=== PATIENT | female | born 1945 | race Caucasian/White ===

== ENCOUNTER 2017-01-26 18:42 | Inpatient (IN) | payer MEDICARE, BC ==
[~2017-01-26] VITALS: Ht 162.6 cm; Wt 82.4 kg
--- NOTE | ~2017-01-26 | CON ---
PATIENT'S NAME: SINAI CAMPOVERDE [facility] AGE: 71 Y [address] ROOM: [place] [id number] LOCATION: GPCU ADMIT DATE: 01/26/2017 Consultation DISCHARGE DATE: FAMILY PHYSICIAN: MEGGAN MURRAY) ATTENDING PHYSICIAN: TEJAL SIMMS DATE OF CONSULTATION: 01/27/2017 REFERRING PHYSICIAN: MECHE HUBBARD MD CARDIOLOGY CONSULTATION REASON FOR CARDIOLOGY CONSULTATION: Chest pain. HISTORY OF PRESENT ILLNESS: This is a 71-year-old female, who presented to an outside hospital with complaints of chest pain. The pain was located in the epigastric region and is currently reproducible with palpation. Her cardiac enzymes are negative, but her pain has been off and on since last Friday afternoon. At the time of this consult, she is pain-free and resting comfortably. When she was having the chest pain, she also had complaints of shortness of breath and dyspnea. She had one episode of nausea and vomiting prior to admission, but no longer has complaints of nausea or vomiting. She also denies presyncope or syncope or palpitations. PAST MEDICAL HISTORY: 1. Mitral valve prolapse. 2. Fibromyalgia. 3. Peptic ulcer disease. 4. Degenerative thoracic spine disk disease. 5. Peripheral neuropathy. 6. History of migraine headaches. PAST SURGICAL HISTORY: 1. Total abdominal hysterectomy. 2. Rectal prolapse and bladder lift in 2007 and a repeat bladder lift in 2011. 3. Surgery for a congenital hip dysplasia in 1968. FAMILY HISTORY: The patient's mother at the age of 90 due to colon cancer. Her father had a history of congestive heart failure and at the age of 91. SOCIAL HISTORY: The patient is a former cigarette smoker. She smoked 2 packs cigarettes per PATIENT'S NAME: SINAI CAMPOVERDE [facility] AGE: 71 Y [address] ROOM: [address] [address] LOCATION: GPCU ADMIT DATE: 01/26/2017 Consultation DISCHARGE DATE: FAMILY PHYSICIAN: MEGGAN MURRAY) ATTENDING PHYSICIAN: TEJAL SIMMS day for a total of 25 years. She quit smoking in 1986. She then started smoking cigars in 1996 for a total of 12 years and quit in 2008. She denies alcohol or illicit drug use. CURRENT MEDICATIONS: 1. Xalatan eyedrops ophthalmically daily in the evening. 2. Cozaar 50 mg p.o. daily. 3. Elavil 10 mg p.o. daily in the evening. 4. Fish oil 1000 mg p.o. daily. 5. Hydrochlorothiazide 25 mg p.o. daily. 6. Potassium chloride 50 mEq p.o. daily. 7. Metamucil 1 capsule p.o. every 48 hours. 8. Neurontin 300 mg p.o. twice daily. 9. Ogen 1.25 mg p.o. daily. 10. Os-Julien plus D 500 mg p.o. twice daily. 11. Tylenol 500 mg p.o. twice daily. 12. Vitamin B12, 1000 mcg p.o. daily. 13. Vitamin D 1000 units p.o. daily. MEDICATION ALLERGIES: 1. Beta blockers causing excessive bradycardia. 2. Sulfa causing flushing and headaches. 3. Macrobid causing hives and rash. REVIEW OF SYSTEMS: Pertinent positive review of systems listed in the HPI. All other review of systems evaluated and negative. PHYSICAL EXAMINATION: VITAL SIGNS: Temperature 97.7, pulse 61, respirations 20, blood pressure 149/72, and O2 saturation 97% on 2 L nasal cannula. The patient weighs 82.8 kg. SKIN: [place], warm, and dry. EYES: Sclerae clear. No xanthelasmas. ENT: Oral mucosa is pink and moist. No jugular venous distention. No carotid bruits. CHEST: Respirations are even and unlabored. LUNGS: Clear to auscultation. HEART: Regular rate and rhythm. Normal S1 and S2. No murmurs, rubs, or gallops. ABDOMEN: Soft with epigastric tenderness which is reproducible with palpation. Overall mild abdominal generalized tenderness. MUSCULOSKELETAL: Equal muscle strength to upper and lower extremities bilaterally against resistance. EXTREMITIES: Peripheral pulses palpable. No clubbing, cyanosis, or edema. PATIENT'S NAME: SINAI CAMPOVERDE [facility] AGE: 71 Y [address] ROOM: [place] [address] [facility] ADMIT DATE: 01/26/2017 Consultation DISCHARGE DATE: FAMILY PHYSICIAN: TREVOR, MEGGAN A. (POOL) ATTENDING PHYSICIAN: TEJAL SIMMS PSYCHIATRIC: Alert and oriented. Mood and affect are appropriate. DIAGNOSTICS: EKG shows T-wave inversions in the anterior leads, and her cardiac enzymes show troponin levels of less than 0.04 x3 values. IMPRESSION AND PLAN: Per Dr. Busch: 1. Pain in the epigastric and lower chest region. 2. Hypertension. 3. Fibromyalgia. We will check an echocardiogram to fully evaluate her ejection fraction as well as to look for wall motion or valvular abnormalities. The patient is also planned to have an ultrasound of the abdomen. If her abdominal workup is negative, we may proceed with cardiac stress testing in view of EKG changes, but we will ultimately relate that to her echo findings. We will discontinue her heparin and draw a fasting lipid panel in the a.m. and start her on aspirin 325 mg today and then 81 mg daily. We will continue to monitor, evaluate, and treat as appropriate. Thank you for this consult. Thank you for allowing [facility] to interact in the care of this patient. YENNY TUTTLE APRN FOR MD CLEMENT GARCIA/hola /[id number] d: 01/27/17 1629 t: 02/06/17 1540, CONSULTATION REPORT
--- NOTE | ~2017-01-26 | ECHO ---
Transthoracic Echocardiography Report (TTE) Demographics Patient Name SINAI CAMPOVERDE Date of Study 01/27/2017 Patient Number [id number] Visit Number [id number] Date of 1945 Room Number G6304 Gender Female Number Age 71 year(s) Referring Jo-Ann Fire Fighters Dispatcher Rusty Peck RVT Physician Travis Avila MD Physician Interpreting Jo-Ann Robles Neurosurgery Research Director Physician Supervising Ordering Physician /ANTONIO Nurse Stress Cobbler Sole Conclusions Contractility Score Summary Normal Left Ventricular contractility was noted. Summary The estimated left ventricular ejection fraction is 55-60%. Diastolic assessment reveals Grade I diastolic dysfunction. Trivial mitral regurgitation by color Doppler. Procedure Type of Study TTE procedure:2D Echocardiogram. Procedure Date Date: 01/27/2017 Start: 08:51 AM Study Location: Inpatient Portable Technical Quality: Adequate visualization Indications:Chest pain. Appropriate Use Criteria: 9 Patient Status: Routine HR: 69 bpm BP: 149/72 mmHg M-Mode/2D Measurements LV Diastolic Dimension: 4.34 cm LV Systolic Dimension: 2.09 cm LV Septum Diastolic: 1.34 cm LV PW Diastolic: 1.6 cm AO Root Dimension: 2.6 cm Cardiac Output: 4.5 l/min AV Cusp Separation: 2 cm RV Diastolic Dimension: 2.78 cm LVOT: 1.9 cm LVOT VTI: 23 cm RV Base: 2.47 cm LV Stroke volume: 65.18 ml RV Length: 6.11 cm TAPSE: 1.69 cm TDI-S': 8.88 cm/s Doppler Measurements AV Peak Velocity: 1.27 m/s MV Peak E-Wave: 0.77 m/s AV Peak Gradient: 6.45 mmHg MV Peak A-Wave: 0.98 m/s AV Mean Gradient: 4 mmHg MV E/A Ratio: 0.78 LVOT Peak Velocity: 0.98 m/s MV P1/2t: 76 msec PV Peak Velocity: 0.75 m/s E' Septal Velocity: 0.06 m/s PV Peak Gradient: 2.27 mmHg E' Lateral Velocity: 0.09 m/s A' Septal Velocity: 0.11 m/s A' Lateral Velocity: 0.12 m/s Findings Left Ventricle Diastolic assessment reveals Grade I diastolic dysfunction. Right Ventricle Normal right ventricular size and function. Left Atrium Normal left atrial size. Right Atrium IVC measures 1.82 cm with inspiratory collapse. Mitral Valve Trivial mitral regurgitation by color Doppler. Aortic Valve Normal aortic valve structure and function. Tricuspid Valve Normal tricuspid valve structure and function. Pulmonic Valve Normal pulmonic valve structure and function. Miscellaneous Visualized portions of the aortic root and ascending aorta appear normal in size. Pleural Effusion No evidence of pleural effusion. Contractility Score LV regional wall motion:(0-Non visualized 1-Normal 2-Hypokinesis 3-Akinesis 4-Dyskinesis 5-Aneurysm) Signature dtt: TRAVIS VALERIO dtd: 01/27/17 0851 Physician Self Edit
--- NOTE | ~2017-01-26 | HP ---
PATIENT'S NAME: SINAI BECKER [facility] AGE: 71 Y [address] ROOM: G6304 [place], [place] [address] LOCATION: GPCU ADMIT DATE: 01/26/2017 History & Physical DISCHARGE DATE: FAMILY PHYSICIAN: PHYSICIAN, UNKNOWN ATTENDING PHYSICIAN: TEJAL SIMMS DATE OF SERVICE: 01/26/2017 CHIEF COMPLAINT: Crushing chest pain that occurred this afternoon shortly after jainism and eating when she was relatively at rest. HISTORY OF PRESENT ILLNESS: I was called by Dr. Franco from [place], [place], regarding Ms. Becker, and initial history was from him. She had presented there complaining of "crushing" chest pain associated with shortness of breath and dyspnea. She had the same symptoms again at rest 2 days ago, which resolved without intervention. In the [facility], she was given aspirin 325 mg, morphine 4 mg, and it went from a 10/10 to a 6/10 pain. Her initial EKG showed some inversions of the T-waves in the lateral leads. Cardiac enzymes showed elevated CK-MB to 8.5, CK normal at 115, and troponin normal at 0.01. A CT of the chest with contrast was negative for dissection or PE, but positive for some emphysema. Her hemoglobin was 12.5, hematocrit 35.8. The patient was not given nitroglycerin for her persistent pain because of a prior intolerance, which resulted in severe hypotension. The patient was accepted in transfer and transported via ground. During that time, her chest pain actually improved some; and when she arrived here to the PCU, she reported her chest pain at 3 to 4 out of 10 and had just started to radiate some to the left arm. She reported no dyspnea or lightheadedness, but reported that she has had significant nausea and vomiting around 2 to 3 p.m. at the [facility]. She has remained very comfortable appearing during my interview and exam, and reports only just now a slight increase in the pressure component, but no significant increase in her pain. She has had chest pain in the past in 2009. She was admitted for some chest pain, and that was when she had hypotension related to nitroglycerin but was not diagnosed with any occlusive coronary artery disease at that time. In the more distant past, I think that early , she had a cardiac cath with no real coronary artery disease manifested but diagnosis of mitral valve prolapse. She does have hypercholesterolemia and was intolerant of Lipitor, which was stopped about a year ago and recently total cholesterol was 272. She knows her LDL was elevated as well. She was started on Lescol. PATIENT'S NAME: SINAI BECKER [facility] AGE: 71 Y [address] ROOM: [place] [address] [facility] AD[facility] DATE: 01/26/2017 History & Physical DISCHARGE DATE: FAMILY PHYSICIAN: PHYSICIAN, UNKNOWN ATTENDING PHYSICIAN: TEJAL SIMMS Currently, the patient is ambulating without assistance. Because of her chronic congenital hip problem had been using a walker but today was able to walk without a cane. She does have to a sleep recliner though. PAST MEDICAL HISTORY: 1. Mitral valve prolapse. 2. Degenerative disk disease of thoracic spine. 3. Fibromyalgia. 4. Peptic ulcer disease and H. pylori noted on the EGD in 2003. She has 4 erythematous ulcers. 5. Hypercholesterolemia. 6. Severe hypokalemia, treated in the hospital, and she continues to be on potassium supplements. 7. Ocular hypertension. 8. Peripheral neuropathy, unrelated to diabetes onset in 2012, but it increased in 2016. 9. Thoracic outlet syndrome, diagnosed in the . 10. Seizure disorder of unknown etiology. The patient thinks it may be partial seizures, and her last seizure was 3 years ago. She is not on any anti-epileptic medications. 11. Migraine headaches. 12. Angina, she last used sublingual nitroglycerin in 2005. PAST SURGICAL HISTORY: 1. She had left tensor fascia resection with grafting and right tensor fascia graft in 1968 for congenital hip dysplasia. 2. Total abdominal hysterectomy with bilateral salpingo-oophorectomy at age 32. 3. Rectal prolapse and bladder lift in 2007 with repeat bladder lift in 2011. ALLERGIES: SULFA AND MACROBID. BETA-CARLTON EYEDROPS CAUSE THE IRREGULAR HEART RATE AND CHEST PAIN. SHE HAS MUSCLE PAIN ON LIPITOR, AND HYPOTENSION ON NITROGLYCERIN. MEDICATIONS: 1. Amitriptyline 10 mg t.i.d. 2. Calcium 600 b.i.d. 3. Estropipate 1.5 mg tablet once daily. 4. Fiber every other day. 5. [place]-3 fish oil 1 g daily. 6. Hydrochlorothiazide 25 mg daily. 7. Ibuprofen 800 mg every 8 hours p.r.n. pain. 8. Klor-Con 25 mEq daily. PATIENT'S NAME: SINAI BECKER [facility] AGE: 71 Y [address] ROOM: G6[address] [place], [place] [address] [facility] AD[facility] DATE: 01/26/2017 History & Physical DISCHARGE DATE: FAMILY PHYSICIAN: PHYSICIAN, UNKNOWN ATTENDING PHYSICIAN: TEJAL SIMMS 9. Latanoprost drops at h.s. both eyes. 10. Gabapentin 300 mg p.o. t.i.d. 11. Nitrostat sublingual 0.4 mg p.r.n. 12. Omeprazole 20 mg once a day. 13. Tramadol 50 mg b.i.d. 14. Extra-strength Tylenol as directed. 15. Vitamin B12 1000 mcg once a day. 16. Vitamin D 3000 units once a day. 17. She took ampicillin premed on Tuesday January 24, 2017. SOCIAL HISTORY: She is , has 2 children. Lives with her , Vinny, in [place]. 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 She is a former smoker. She smoked cigarettes 2 packs per day for 25 years. She quit in 1986. She started smoking cigars in 1996 for 12 years until 2008. She has no appreciable alcohol intake. She denies illicit drug use. FAMILY HISTORY: Her mother at age 90 of colon cancer. Her father at age 91 of CHF. She has a sister whose health history is not well known, but she thinks she was hyperthyroid with a breast lump. REVIEW OF SYSTEMS: GENERAL: She states she is chronically overheated, so she has some sweats, but no actual fevers or chills, and she denies weight loss or gain, appetite change or fatigue. HEENT: She had a repair of cavity at the dentist on 01/24/2017. She does have cataracts and elevated eye pressure. She wears glasses. She does have some sinus problems include sinus drainage and nasal stuffiness, for which she does not take medicine. She has not had any nosebleeds, sore throat, dysphagia, or odynophagia. PULMONARY: She gets slightly short of breath, but denies orthopnea, cough, sputum production, or wheezing. CARDIOVASCULAR: As in the HPI with a history of mitral valve prolapse and lately having some ankle swelling. Of note that she had recently been started on this new anticholesterol medication, which does not appear to be on her list from the other hospital, and she has a new elevation of her liver functions as below. GASTROINTESTINAL: She was started on omeprazole for indigestion in 2007, and that would have treated her peptic ulcer disease as well. She did have severe nausea and vomiting today but none really. To speak of prior to that, she does have IBS with intermittent diarrhea, which is improved on fiber, which she is taking daily, otherwise she denies constipation, hematemesis, hematochezia, or melena. GENITOURINARY: She says her urinary symptoms started with the rectocele repair when they tried to lift her bladder at the same time. She continues to have frequency, polyuria, some incontinence. She describes dribbling but no PATIENT'S NAME: SINAI BECKER [facility] AGE: 71 Y [address] ROOM: [address] [place], [place] [address] [facility] ADMIT DATE: 01/26/2017 History & Physical DISCHARGE DATE: FAMILY PHYSICIAN: PHYSICIAN, UNKNOWN ATTENDING PHYSICIAN: TEJAL SIMMS. NEUROLOGIC: She has a long history of migraines. They are not so frequent now and are well controlled with Excedrin Migraine. She denies any strokes or stroke symptoms including weakness, numbness, confusion, dysarthria, syncope, near syncope, falls. Her balance problems are related to musculoskeletal problems of the congenital hip dysplasia. HEMATOLOGIC: She has never had DVT or PE. No history of anemia or abnormal bruising. 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 She had hip repairs at age of 24. She had falls because of the hips would dislocate. ENDOCRINE: She continues to have night sweats and hot flashes related to menopause. DERMATOLOGIC: She has fair skin and freckle, but no skin cancer. She tends to have itchy skin but no rashes. PSYCHIATRIC: Negative for depression, anxiety, or insomnia, etc., PHYSICAL EXAMINATION: GENERAL: This is a well-developed, pleasant female, in no acute distress. She is able to transfer from the transport stretcher, stand, and walk a couple of steps over to the bed without any increase in her chest pain. VITAL SIGNS: On admission to the unit, her heart rate is in the 80s, respirations about 16. Blood pressure 196/84, but went down to 185/78 both in the right arm; we checked in the left arm at the same time as the second one, and it is 182/81; and at the same time, her chest pain is about 3/10. Room air saturation is 97%. She was afebrile at the other hospital, temperature was 97.8. HEENT: Normocephalic, atraumatic. Her pupils are equal, sluggishly reactive. She has glasses on. Sclerae are anicteric. Palpebral conjunctivae are pink without exudate. Oropharynx is clear. There are upper dentures, and there are few teeth remaining in the lower jaw, but most are missing including all the incisors. She seems to have some periodontal disease. NECK: Supple without lymphadenopathy or thyromegaly. There is no supraclavicular lymphadenopathy. LUNGS: Clear to auscultation and percussion bilaterally. There is no CVA or vertebral tenderness. ABDOMEN: Obese, somewhat rotund, but soft, nontender, nondistended. Bowel sounds are present in each quadrant. No hepatosplenomegaly or mass appreciated. EXTREMITIES: Show 1+ pretibial edema. No pedal edema. Dorsalis pedis pulses are 2+ and equal bilaterally. The distal strength with dorsiflexion and plantar flexion is essentially normal. NEUROLOGIC: Her speech is normal. She is nonfocal. LABORATORY DATA: PATIENT'S NAME: SINAI BECKER [facility] AGE: 71 Y [address] ROOM: [address] [address] [facility] AD[facility] DATE: 01/26/2017 History & Physical DISCHARGE DATE: FAMILY PHYSICIAN: PHYSICIAN, UNKNOWN ATTENDING PHYSICIAN: TEJAL SIMMS From [facility] shows creatine kinase 115; CK-MB 8.5, upper limit of normal is 3.5. Sodium 139, potassium 3.3, chloride 104, CO2 of 25, glucose 118, BUN 23, creatinine 0.9, calcium 9.3. Total protein 7.1, albumin 3.9, globulin 3.2, alkaline phosphatase 58, ALT 127, AST 149, bilirubin 1.3. Osmolality was normal. EGFR was 65.79. Hemoglobin was 12.8, and her hematocrit was 35.8. RADIOGRAPHIC STUDIES: CT of the chest showed no pulmonary embolism, moderate central lobular emphysema. EKG from here shows a sinus rhythm with a NH interval of 192, QT 426, QTc 450, rate is 72. There is no ST elevation. There is some T-wave inversion in V3, V2, V1, and nonspecific ST changes in lead III with a right bundle branch block. The right bundle branch block was present at [facility] earlier. ASSESSMENT AND PLAN: 1. Chest pain in a 71-year-old female with known hypercholesterolemia and past angina, EKG changes, and elevated CK-MB. Her repeat troponin from here is pending. I have started her on nitroglycerin drip to be started at the minimal rate and very slightly judiciously advanced to get her blood pressure at least under 170 and get her chest-pain free. We will continue the heparin drip that was started and do serial troponins. Dr. Busch has been notified that she arrived. We discussed her care with Dr. Franco by phone prior to her transport. I am going to keep her n.p.o. in the event she should have an indication for cardiac cath in the morning. 2. Mild hypokalemia. We will replace this in her IV. 3. Hypercholesterolemia. We will just hold statin for now due to her elevated liver functions, and I repeat the complete metabolic panel in the morning. 4. Emphysema. It is incidentally noted. She is not wheezing. We will monitor her and give her nebs if needed. 5. Fibromyalgia. We will treat her pain as needed. 6. Peripheral neuropathy. Continue gabapentin. 7. Deep venous thrombosis prophylaxis. She will be fully anticoagulated with a heparin drip, so there is no longer indication for that. 8. Disposition. Hope to be able to resolve her chest pain and treat and discharge within the next 36 to 48 hours. TEJAL SIMMS MD PATIENT'S NAME: NIRALI SINAI [facility] AGE: 71 Y [address] ROOM: [address] [address] LOCATION: [facility] ADMIT DATE: 01/26/2017 History & Physical DISCHARGE DATE: FAMILY PHYSICIAN: , UNKNOWN ATTENDING PHYSICIAN: TEJAL SIMMS LM/hola /[id number]: [id number] T: [id number] HISTORY & PHYSICAL
--- NOTE | ~2017-01-26 | CON ---
PATIENT'S NAME: SINAI CAMPOVERDE AGE: 71 Y [address] ROOM: [address] [place], [place] [address] LOCATION: GPCU ADMIT DATE: 01/26/2017 Consultation DISCHARGE DATE: FAMILY PHYSICIAN: MEGGAN MURRAY ([place]) ATTENDING PHYSICIAN: TEJAL SIMMS DATE OF CONSULTATION: 01/27/2017 REFERRING PHYSICIAN: MECHE HUBBARD MD REASON FOR CONSULTATION: Elevated liver enzymes and midepigastric discomfort. HISTORY OF PRESENT ILLNESS: This is a very pleasant, 71-year-old female who was seen in [place], [place]. At initial presentation, she was complaining of "crushing" chest pain associated with shortness of breath and dyspnea. Symptoms have been present for approximately 2 days after initial presentation. The patient presented to the emergency room and was found to have EKG showing inversion of the T-waves in the lateral leads. Cardiac enzymes were all within normal limits. CT of the chest was negative for dissection or PE, but positive for emphysema. Hemoglobin on admission was 12.5 with hematocrit of 35.8. The patient was then transported to [facility] for further evaluation. On evaluation at [facility], she was noted to have elevated liver function tests including AST of 389, ALT of 296, and total bilirubin of 1.8. The patient was seen and examined. She does state that last Friday, she had a similar episode with pain located in her midepigastric area that she states was down into her upper quadrant with radiation into the back. The patient denied any fever or chills at that time, though did state that she had significant "sweating." She stated the pain resolved. This was associated after eating her lunch meal. The patient then experienced onset of this crushing chest pain on the day of presentation to [facility]. The patient denies any known history of elevated liver function tests. She denies any associated nausea or vomiting. She also denies any chris abdominal pain minus the midepigastric discomfort. Again, she denies any chris fever or chills to her knowledge. On examination, she denied any acute chest pain, chest pressure, shortness of breath, fever, or chills. She did state that she was having some discomfort after swallowing Augmentin antibiotic for pretreatment of a dental procedure as well. PAST MEDICAL HISTORY: Mitral valve prolapse; degenerative disk disease of thoracic spine; fibromyalgia; peptic ulcer disease; history of H pylori noted on EGD in 2003, she also at that time had 4 ulcers noted; hypercholesterolemia; severe PATIENT'S NAME: SINAI CAMPOVERDE AGE: 71 Y [address] ROOM: [place] [address] LOCATION: GPCU ADMIT DATE: 01/26/2017 Consultation DISCHARGE DATE: FAMILY PHYSICIAN: MEGGAN MURRAY ([place]) ATTENDING PHYSICIAN: TEJAL SIMMS hypokalemia, treated in the hospital; ocular hypertension; peripheral neuropathy, unrelated to diabetes, onset in 2012; thoracic outlet syndrome diagnosed in 1979; seizure disorder of unknown etiology; migraine headaches; and angina. PAST SURGICAL HISTORY: Left tensor fascia resection with grafting and right tensor fascia graft in 1968 for congenital hip dysplasia, total abdominal hysterectomy with bilateral salpingo-oophorectomy at the age of 32, and rectal prolapse and bladder lift in 2007 with repeat bladder lift in 2011. She denies any history of colonoscopy. She did recall having an upper endoscopy in 2003. SOCIAL HISTORY: The patient is . She has 2 children. She lives with her in [place]. She is a former smoker, smoked cigarettes at 2 packs per day for 25 years, quit in 1986. Denies any chris alcohol use or illicit drug use. FAMILY HISTORY: The patient's mother had colon cancer and at the age of 90. The patient's father at the age of 91 from congestive heart failure. The patient's sister is thought to have hyperthyroidism as well as breast lump. ALLERGIES: BETA BLOCKERS, SULFA, AND MACROBID. CURRENT MEDICATIONS: Please refer to the medication administration record. REVIEW OF SYSTEMS: All-point review of systems was completed, all were negative except for those identified in the History of Present Illness. PHYSICAL EXAMINATION: GENERAL: A pleasant, 71-year-old female, who is lying in bed, who appears to be in no acute distress. VITAL SIGNS: Temperature 97.8, pulse 65, respirations of 25, blood pressure 168/70, and oxygen saturation is 92% on room air. SKIN: [place], warm, and dry. No jaundice. HEENT: Head is normocephalic and atraumatic. Pupils are equal, round, and reactive to light. Sclerae are clear, nonicteric. Oral mucosa is pink and moist. No thyromegaly. NECK: Soft and supple. CARDIOVASCULAR: Regular. Normal S1 and S2. RESPIRATORY: Respirations even and unlabored. Lungs are clear to auscultation. PATIENT'S NAME: SINAI CAMPOVERDE AGE: 71 Y [address] ROOM: [place] [address] LOCATION: GPCU ADMIT DATE: 01/26/2017 Consultation DISCHARGE DATE: FAMILY PHYSICIAN: MEGGAN MURRAY ([place]) ATTENDING PHYSICIAN: TEJAL SIMMS ABDOMEN: Soft and round. Mildly tender in her midepigastric area. Bowel sounds are positive x4 quadrants. MUSCULOSKELETAL: No muscle weakness or atrophy. EXTREMITIES: No clubbing, cyanosis, or edema. NEUROLOGIC: Grossly nonfocal. LABORATORY AND DIAGNOSTIC DATA: Chemistry panel includes a glucose of 91, BUN of 24, creatinine 0.7, sodium 139, potassium 3.7, chloride of 107, and CO2 of 25. Albumin of 3.4. AST of 233, ALT of 266, and alkaline phosphatase of 58. Total bilirubin 0.8, down from 1.8; direct bilirubin at that time was 1.2 and indirect was 0.4. The patient also underwent abdominal ultrasound at [facility]. This did show cholelithiasis, no evidence of acute cholecystitis, fatty hepatomegaly, no biliary dilation. ASSESSMENT AND PLAN: Again, this is a very pleasant, 71-year-old female who was admitted with "crushing" chest pain, and cardiac has been ruled out with normal cardiac enzymes. We were asked to see in consultation for elevation of liver function tests as well as midepigastric pain, noncardiac related. At this time, we will go forth with complete liver workup, ruling out metabolic including PAYAL, AMA, ASMA, and hepatitis C and B panels. We will also complete an MRCP in the morning, and the patient will be made n.p.o. at midnight to rule out biliary origin for her elevated liver function tests. In regard to the patient stating that she had discomfort after swallowing Augmentin, she will be placed on nystatin swish and swallow for possible esophagitis. Possible endoscopy may be warranted after complete review of the patient's MRCP and findings. Thank you for this consult. VINAYAK BRAXTON APRN FOR MD ELIOT MESA/travisl /[id number] d: 01/28/17 1144 t: 02/02/17 0859, CONSULTATION REPORT
--- NOTE | ~2017-01-26 | DS ---
PATIENT'S NAME: SINAI CAMPOVERDE [facility] AGE: 71 Y [address] ROOM: [address] [address] LOCATION: GPCU ADMIT DATE: 01/28/2017 Discharge Summary DISCHARGE DATE: 01/29/2017 FAMILY PHYSICIAN: MEGGAN MURRAY ([place]) ATTENDING PHYSICIAN: Margarita Romero FINAL DIAGNOSES: 1. Atypical chest pain. 2. Migraine headache. 3. Intractable nausea and vomiting. 4. Essential hypertension. 5. Elevated liver enzymes. 6. Dyslipidemia. HISTORY OF PRESENT ILLNESS: Please see the history and physical dictated by Dr. Margarita Romero for details of admission. In short, the patient had presented to her local hospital with complaints of chest pain and epigastric pain with nausea and vomiting. Their concern was that because of initial EKG showing some inversion in the T-waves, I was concerned that this is an acute cardiac syndrome. She has had a CT scan done, which was negative for a PE or dissection. She was subsequently transferred and admitted to PCU. LABORATORY DATA: On admission, sodium was 138, potassium was 3.7, chloride was 106, CO2 was 22, BUN was 21, creatinine was 0.8, her magnesium was 2.1, and proBNP was 89. Her sodium has remained stable; it was 133 most prior to discharge, potassium prior to discharge was 3.7, BUN was 17, and creatinine was 0.9. It was noted on the that her liver enzymes were abnormal. Her alkaline phosphatase was 61, her AST was 389, and ALT was 296. Total bilirubin was 1.2, her amylase was 24, and lipase was 186. These were followed throughout the hospital stay most prior to discharge. The day prior to discharge, her alkaline phosphatase was 58, AST was 101, ALT was 200, and total bilirubin was 0.6. Cardiac Enzymes: Three sets were all negative. Troponins were less than 0.04. Her cholesterol was 207, triglycerides were 195, HDL was 71, and LDL was 97. Blood culture was negative. RADIOLOGY DATA: An ultrasound of the abdomen done on January 27 showed fatty infiltration of the liver that was mildly enlarged. There were stones in her gallbladder, but no evidence of gallbladder wall thickening or pericholecystic fluid. Her biliary ducts were normal. Her kidneys were normal as well. An MRCP of her gallbladder was done, and did not show any intrahepatic or extrahepatic biliary dilation. The common bile duct was normal. No evidence of cholecystitis. CARDIOVASCULAR DATA: An echocardiogram returned with an ejection fraction of 55% to 60%. She had grade 1 diastolic dysfunction. Cardiac stress test was PATIENT'S NAME: SINAI CAMPOVERDE [facility] AGE: 71 Y [address] ROOM: [place] [address] LOCATION: GPCU ADMIT DATE: 01/28/2017 Discharge Summary DISCHARGE DATE: 01/29/2017 FAMILY PHYSICIAN: MEGGAN MURRAY ([place]) ATTENDING PHYSICIAN: Margarita Romero read as negative. HOSPITAL COURSE: The patient was admitted with a diagnosis of chest pain, with an abnormal EKG at an outlying facility. She was admitted to the hospital, and was admitted to PCU. Cardiac enzymes were obtained as well as an EKG. Cardiology was consulted and an echocardiogram was ordered. The patient was having pain on admission, and so, was put on a nitroglycerin drip and also a heparin drip. Cardiac enzymes were trended and returned without any abnormality. The night of admission, there was Rapid Response called for severe epigastric pain at that time, when she was seen by Dr. Martinez. He did feel that the symptoms were concerning for acute cholecystitis. Her liver enzymes had been elevated, and her bilirubin was slightly elevated on admission. At that time, she was given IV Dilaudid for pain control. An ultrasound of her abdomen was obtained. It was also noted that her liver enzymes were elevated. She was given aspirin and started on a lower-dose aspirin and seen by Dr. Busch. He did not feel that she needed to go to the [facility]. Her blood pressures were elevated. She was started on Cozaar and then given hydralazine. We did try attempt to get laboratory from her primary care provider, which showed that her liver enzymes had been mildly elevated. Prior to admission, she had been started on Lescol. Dr. Kimble was asked to see the patient regarding the elevated liver enzymes. They did see her and ordered an MRCP, as well as further laboratory studies. He also was concerned that she may have fungal esophagitis, and she was put on nystatin and she had been previously placed on Protonix. On the morning of January 28, the patient had severe migraine headache with nausea and vomiting. Her blood pressures were high. She was unable to keep any oral medications down. We had to use IV pain medications as well as antiemetics and IV medications to control her blood pressure. She had initially been admitted on observation status and she was changed to inpatient status at that time. She was seen by Dr. Lao, who did feel that she needed to have a stress test. This was performed on the . Results returned without any evidence of ischemia. In the meantime, her liver enzymes had started to trend downward. Her MRCP did not show any evidence of acute cholecystitis. The patient's migraine headache had resolved, and it was felt that she was stable for discharge. DISCHARGE DISPOSITION: She is discharged to home. DISCHARGE FOLLOWUP: 1. She will follow up in GI Clinic in 2 weeks. 2. She is to follow up with Ericka Murray, her PCP/primary care provider in three to five days. DISCHARGE DIET: She should have a low-fat diet. DISCHARGE ACTIVITY: There were no activity restrictions. PATIENT'S NAME: SINAI CAMPOVERDE [facility] AGE: 71 Y [address] ROOM: [place] [address] LOCATION: GPCU ADMIT DATE: 01/28/2017 Discharge Summary DISCHARGE DATE: 01/29/2017 FAMILY PHYSICIAN: MEGGAN MURRAY ([place]) ATTENDING PHYSICIAN: Margarita Romero DISCHARGE MEDICATIONS: 1. Nitrostat 0.4 mg p.r.n. chest pain. 2. Tylenol 500 mg twice daily. 3. Ibuprofen 800 mg at bedtime. 4. Elavil 20 mg at bedtime. 5. Calcium with D twice daily. 6. Potassium supplement [id number]-[id number] once daily. 7. Vitamin D 1000 units daily. 8. Vitamin B12, 1000 mcg daily. 9. Aspirin 81 mg daily. 10. Ogen 1.5 mg daily. 11. Neurontin 300 mg twice daily. 12. HydroDIURIL 25 mg daily. 13. Cozaar 100 mg daily. 14. Lopressor 25 mg twice daily. 15. Nystatin swish and swallow three times daily for a total of 10 days. 16. Fish oil one capsule daily. 17. Protonix 40 mg daily. 18. Xalatan eyedrops one drop to each eye at bedtime. 19. Ultram 50 mg twice daily as needed. 20. Fiber every 48 hours. She was asked to hold the Lescol. OVERALL PROGNOSIS AT DISCHARGE: Good. MEGAN BIGGS MD LAW/modl /[id number] CC: Ericka Murray APRN (PO[place]) d: 01/30/17309 t: 02/06/170, DISCHARGE SUMMARY
--- NOTE | ~2017-01-26 | ESTC ---
Cardiac Perfusion Imaging Demographics Patient Name NIRALI Cruz Gender Female Patient Number [id number] Race Visit Number [id number] Ethnicity Corporate ID Room Number G6304 Accession Number [id number] Height 64 inches Date of 1945 Weight 180.8 pounds Shanelle Valerio Date of study 01/29/2017 Physician Travis Supervising /ANTONIO WU Technologist Alison Stacy Ordering Physician Stress robotics technician Stress ECG Reading Jo-Ann Nurse Arvind Ruiz RN Physician Travis Medications Reviewed with Patient prior to Procedure. Procedure Procedure Type: Nuclear Stress Test:Cardiolite Stress Test Procedure Start time: 01/29/2017 09:45 Indications: Chest pain. Risk Factors The patient risk factors include:former tobacco use, hypertension, family history of premature CAD and dyslipidemia. Conclusions Summary Perfusion Images: The overall quality of the study is fair, due to soft tissue attenuation. Left ventricular cavity is noted to be normal on the stress and rest studies. There is no evidence of abnormal lung activity. The right ventricle is not visualized and cannot be assessed. Stress SPECT images and Rest SPECT images demonstrate homogenous tracer distribution throughout the myocardium except for a mild decrease uptake in the area involving the anterior wall consistent with soft tissue attenuation. Gated SPECT imaging reveals normal myocardial thickening and wall motion. The left ventricular ejection fraction was calculated to be 77%. Impression ECG portion of stress test is clinically negative for ischemia by diagnostic criteria. Myocardial perfusion imaging is probably normal. The anterior wall matched defect is consistent with soft tissue attenuation. Overall left ventricular systolic function was normal without regional wall motion abnormalities. There are no previous studies for comparison . Stress Protocols Resting ECG Sinus rhythm, incomplete RBBB Pre-stress physical exam: Patient assessed by Dr Valerio prior to testing. Predicted HR: 150 bpm ECG Findings No ECG changes suggestive of ischemia. Arrhythmias No rhythm abnormality. Symptoms Shortness of breath. Stress Interpretation ECG portion of stress test is negative for ischemia by diagnostic criteria. Nuclear images are pending Imaging Results Applied corrections - Motion correction applied High risk findings Summed scores - LV dilatation (TID) : 1.24 - Summed stress score: 9 - Summed rest score: 5 - Summed difference score: 4 Stress ejection Ejection fraction:77 % EDV :70 ml ESV :16 ml Stroke volume :54 ml LV mass :98 gr Imaging Protocols Rest Stress Isotope:Tc99m Sestamibi IV Isotope: Tc99m Sestamibi IV Isotope dose:12.7 mCi Isotope dose:39.6 mCi Date:01/29/2017 08:15 Date:01/29/2017 09:52 Technique: SPECT Technique: Gated Supine SPECT Supine IV remains in place after procedure. Procedure Medications - Regadenoson (Lexiscan) 0.4 mg IV over 10-15 sec. I.V. . Medications administered per verbal order and read back to physician prior to administration. Medical History Admission Data Admission date: 01/28/2017 Admission Time: 11:10 Hospital Status: Inpatient. Signatures dtt: TRAVIS VALERIO dtd: 01/29/17 0945 Physician Self Edit
[2017-01-26 20:09] LABS: ALBUMIN 3.9 gm/dL (3.5-5.0); ANION GAP 13.7 (10.0-19.0); BLOOD UREA NITROGEN 21 mg/dL (6-24); CALCIUM 9.1 mg/dL (8.5-10.5); CHLORIDE 106 mMol/L (96-110); CO2 22 mMol/L (22-32); CREATININE 0.8 mg/dL (0.5-1.1); ESTIMATED GFR (MDRD EQUATION) > 60; MAGNESIUM 2.1 mg/dL (1.8-2.6); PHOSPHORUS 2.1 mg/dL (2.5-4.9); POTASSIUM 3.7 mMol/L (3.7-5.1); SODIUM 138 mMol/L (135-145)
[2017-01-26] MEDS ORDERED: ELAVIL10 MG PO (20:36)
[2017-01-26] MEDS ORDERED: CALCIUM 600 +1 EAC6 PO (20:37)
[2017-01-26] MEDS ORDERED: ESTROPIPATE0.75 MG PO (20:38)
[2017-01-26] MEDS ORDERED: FIBER0.52 GM PO (20:39)
[2017-01-26] MEDS ORDERED: FISH OIL OMEGA1 EAC1 PO (20:40)
[2017-01-26] MEDS ORDERED: HYDRODIURIL25 MG PO (20:41)
[2017-01-26] MEDS ORDERED: MOTRIN800 MG PO (20:42)
[2017-01-26] MEDS ORDERED: KLOR-CON-EF 2525 MEQ PO (20:43)
[2017-01-26] MEDS ORDERED: XALATAN2.5 ML OPHTH (20:44)
[2017-01-26] MEDS ORDERED: NEURONTIN300 MG PO (20:45)
[2017-01-26] MEDS ORDERED: NITROSTAT 0.40.4 MG SL (20:46)
[2017-01-26] MEDS ORDERED: PRILOSEC20 MG PO (20:46)
[2017-01-26] MEDS ORDERED: EFFER-K 25 MEQ25 MEQ PO (20:49)
[2017-01-26] MEDS ORDERED: ULTRAM50 MG PO (20:50)
[2017-01-26] MEDS ORDERED: TYLENOL EXTRA500 MG PO (20:51)
[2017-01-26] MEDS ORDERED: VITAMIN D1000 UNIT PO (20:52)
[2017-01-26] MEDS ORDERED: VITAMIN B-121000 MCG PO (20:52)
[2017-01-26 22:22] LABS: ALBUMIN 3.5 gm/dL (3.5-5.0); TOTAL BILIRUBIN 1.8 mg/dL (0.0-1.5); TOTAL PROTEIN 6.9 g/dL (6.0-8.4)
[2017-01-27 01:43] LABS: CPK 89 IU/L (21-215)
--- NOTE | 2017-01-27 02:43 | NUR ---
Pt is a 71 year old female admitted for observation on PCU. Arrived to PCU @1850. Pt had been experiencing chest pain since friday. On 01/26 in afternoon, the chest pain worsened and patient decided to go to [place] [facility]. CT and chest xray done there. Then pt was transferred to [facility]. Upon arrival to PCU, blood pressure 196/84. Pt has sensitivity to Nitro.
--- NOTE | 2017-01-27 05:19 | NUR ---
Significant Event: A/O x3. Afebrile. Lower chest pain, epigastric pain. gave 6mg total of morphine. Ultram x1 given for headache. Pt became very distressed/restless around 2114. EKG neg. chest pain went from 10/04 to 9 rapidly. Patient had an emesis. COMPENSATION ADMINISTRATOR called. throughout shift: SBP 90-130s. HR 50-90s, 2L nc, 16-20 resp. Pain better under control since midnight. NPO since midnight. On bedrest, up to commode with assistance. Hep gtt @ 1200/hr. Follow up: Next ptt-hp @ 1000.
[2017-01-27 08:08] LABS: ALBUMIN 3.4 gm/dL (3.5-5.0); ALK PHOS 58 IU/L (33-138); ALT 266 IU/L (12-78); ANION GAP 10.7 (10.0-19.0); AST 233 IU/L (10-40); BLOOD UREA NITROGEN 24 mg/dL (6-24); CALCIUM 8.7 mg/dL (8.5-10.5); CHLORIDE 107 mMol/L (96-110); CO2 25 mMol/L (22-32); CREATININE 0.7 mg/dL (0.5-1.1); ESTIMATED GFR (MDRD EQUATION) > 60; POTASSIUM 3.7 mMol/L (3.7-5.1); SODIUM 139 mMol/L (135-145); TOTAL PROTEIN 6.6 g/dL (6.0-8.4)
[2017-01-27 08:09] LABS: CPK 68 IU/L (21-215); TOTAL BILIRUBIN 0.8 mg/dL (0.0-1.5)
[2017-01-27] MEDS ORDERED: LESCOL40 MG PO (11:14)
--- NOTE | 2017-01-27 17:04 | NUR ---
Significant Event: Echo done today. ABD ultrasound done. GI saw pt and she will have MRCP tomorrow, NPO at 0000. SBP elevated today when pt started having epigastric pain again, MS given and Ice on which helped fast. Cozaar given po and pt had pain again so MS given again. Apresoline had to be given at 1550 for SBP 190s. Ultram at 1630 for headache she gets migraines. 02 weaned off. Heparin drip off, ASA given this am. Clear liquid diet tolerated. Follow up:
[2017-01-28 03:59] LABS: ALBUMIN 3.5 gm/dL (3.5-5.0); TOTAL PROTEIN 6.9 g/dL (6.0-8.4)
[2017-01-28 04:00] LABS: TOTAL BILIRUBIN 0.6 mg/dL (0.0-1.5)
--- NOTE | 2017-01-28 04:34 | NUR ---
Significant Event: A&Ox3, HTN. SBP 150s/180s. PRN hydralasine given around 0330 for pressures in the 180-170s SBP. Transfers to bathroom with minimal assist. Patient complaines about having a migraine but refuses medication. Cool towel to head. NPO at 0000 for MRCP today. Follow up: Continue with plan of care.
--- NOTE | 2017-01-28 15:51 | NUR ---
Significant Event: pt had migrain all day, vomit at 0930, zofran given, morphine 4mg twice, dilaudid once, cozaar increased but only 50mg given as pt vomitted first pill. Lexiscan tomorrow, npo at 0000. Hydralazine this am also for hypertension. No c/o epigastric pain. Pt helps pt cares. Follow up:
--- NOTE | 2017-01-29 05:06 | NUR ---
Significant Event: A&Ox3, SBP: 140s tonight. VSS on room air. Up ad-jose in room. Rates migrain -03/06. Morphine given X3 through out shift. New IV to left posterior forearm with no complications, SL. NPO at 0000 for lexiscan in AM. Zofran given before HS medications per patient request. Refuses calf pumps. Follow up: D/C on 01/30
[2017-01-29 05:48] LABS: ALBUMIN 3.6 gm/dL (3.5-5.0); ANION GAP 11.7 (10.0-19.0); BLOOD UREA NITROGEN 17 mg/dL (6-24); CALCIUM 9.1 mg/dL (8.5-10.5); CHLORIDE 101 mMol/L (96-110); CO2 24 mMol/L (22-32); CREATININE 0.9 mg/dL (0.5-1.1); ESTIMATED GFR (MDRD EQUATION) > 60; MAGNESIUM 1.9 mg/dL (1.8-2.6); PHOSPHORUS 2.7 mg/dL (2.5-4.9); POTASSIUM 3.7 mMol/L (3.7-5.1); SODIUM 133 mMol/L (135-145)
--- NOTE | 2017-01-29 11:18 | NUR ---
D:Patient went down for Lexiscan at 0925. Returned to room at 1005, and was back down to [facility] for rest of scan. Continues to c/o migraine headache, taking 4mg Morphine about every 4 hours. States it just doesn't last any longer than 4 hours. Cool cloth to head.
--- NOTE | 2017-01-29 15:24 | NUR ---
D:Patient has not had any headache for the last hour or so. States feeling much better. Had some lunch and coffee. Up in room and wanting to shower. P:Continue to monitor, waiting on stress test results.
--- NOTE | 2017-01-29 17:41 | NUR ---
Significant Event:Patient had stress test today, are waiting results. Patient is still hoping to go home today. Had Morphine twice this morning for c/o migraine headache. But came back after stress test and ate and had a cup of coffee and felt much better. Up to bathroom ad jose. Started on Lopressor today. HR 60-90's, and the 60's being after Lopressor given. SBP 100-130's. Follow up:Home tonight or tomorrow depending on stress test results
[2017-01-29] MEDS ORDERED: ASPIRIN (CHILDR81 MG PO (19:38)
[2017-01-29] MEDS ORDERED: COZAAR100 MG PO (19:39)
[2017-01-29] MEDS ORDERED: PROTONIX40 MG PO (19:40)
[2017-01-29] MEDS ORDERED: LOPRESSOR25 MG PO (19:40)
[2017-01-29] MEDS ORDERED: NYSTATIN100000 UNI PO (19:41)
--- NOTE | 2017-01-29 21:07 | NUR ---
PATIENT A/OX3, VSS ON ROOM AIR. NO COMPLAINTS OF A HEADACHE AT THIS TIME, MUCH BETTER SINCE PT. HAS BEEN ABLE TO EAT AND DRINK CAFFEINE. UP AD LUPIS IN ROOM. IV TO L)FOREARM REMOVED WITHOUT DIFFICULTLY. NEW MEDICATIONS, DISMISSAL INSTRUCTIONS GONE OVER WITH PATIENT AND , NO FURTHER QUESTIONS AT THIS TIME. ALL BELONGINGS SENT HOME WITH PATIENT.
== END 2017-01-29 20:40 | disposition disaster alternative care site (69) | DRG 392 ==
LOC: EDBD 18:42 → GPCU 18:42
PROVIDERS: Family Medicine; Internal Medicine; ADMIT Internal Medicine
DX: K20.9 Esophagitis, unspecified (principal); G62.9 Polyneuropathy, unspecified; J43.9 Emphysema, unspecified; E78.00 Pure hypercholesterolemia, unspecified; E87.6 Hypokalemia; I10 Essential (primary) hypertension; M79.7 Fibromyalgia; Z79.82 Long term (current) use of aspirin
CPT/HCPCS: A9500; C9113; G0378; J0360; J1170; J1610; J1644; J2060; J2270; J2405; J2785; J7030; J7050